=== PATIENT | female | born 2005 | race Caucasian/White ===

== ENCOUNTER 2025-08-16 15:46 | Emergency (ER) | payer OTHER ==
[2025-08-16 15:54] VITALS: BP 110/75; PULSE 92; RESP 18; TEMP 98.2; BMI 27.3
[2025-08-16 17:00] LABS: ABSOLUTE IMMATURE GRANULOCYTES 0.01 x10^3/uL (0.0-0.031); BASOPHILS # 0.01 x10^3/uL (0.01-0.08); EOSINOPHIL % 0.2 % (0.7-5.8); EOSINOPHILS # 0.01 x10^3/uL (0.04-0.36); MCHC 33.7 g/dl (32.2-35.5); MEAN CELL VOLUME 90.1 fl (79.4-94.8); MEAN PLT VOLUME 9.2 fl (9.4-12.3); MONOCYTE # 0.36 x10^3/uL (0.24-0.86); MONOCYTE % 5.4 % (4.7-12.5); RDW 13.2 % (12.1-16.5)
[2025-08-16 17:02] LABS: URINE APPEARANCE CLEAR; URINE BILIRUBIN NEGATIVE (NEGATIVE); URINE COLOR YELLOW; URINE GLUCOSE (UA) NEGATIVE (NEGATIVE); URINE KETONE 1+ (NEGATIVE); URINE LEUK ESTERASE NEGATIVE (NEGATIVE); URINE NITRITE NEGATIVE (NEGATIVE); URINE PROTEIN NEGATIVE (NEGATIVE); URINE UROBILINOGEN 0.2 mg/dL (0.2-1.0)
[2025-08-16 17:05] LABS: HCG,QUALITATIVE URINE Negative
[2025-08-16] MEDS: ACETAMINOPHEN 1000 MG/100 ML BAG IVPB ONE (17:05)
[2025-08-16] MEDS: FAMOTIDINE 20 MG/50 ML IVPB 20 MG/50 ML MG IVPB ONE (17:05)
[2025-08-16] MEDS: MAG HYDROX/AL HYDROX/SIMETH 30 ML UNIT-DOSE CUP PO ONE (17:05)
[2025-08-16] MEDS ORDERED: FAMOTIDINE 20 MG/50 ML IVPB 20 MG/50 ML MG IVPB ONE (17:11)
[2025-08-16] MEDS ORDERED: ACETAMINOPHEN INJECTION 100 ML ONE (17:11)
[2025-08-16] MEDS ORDERED: MAG HYDROX/AL HYDROX/SIMETH 30 ML UNIT-DOSE CUP ONE (17:11)
[2025-08-16 17:18] LABS: GLUCOSE,RANDOM 85.0 mg/dL (74-106)
[2025-08-16 17:19] LABS: TOT PROT 7.7 g/dl (6.4-8.2)
[2025-08-16 17:20] LABS: CO2 24.0 mmol/L (21-32)
[2025-08-16 17:21] LABS: ALK PHOS 74.0 U/L (40-150)
[2025-08-16 17:24] LABS: CREATININE 0.62 mg/dL (0.55-1.3); SGOT/AST 29.0 U/L (5-34); SGPT/ALT 24.0 U/L (0-55)
[2025-08-16 17:44] LABS: HCV DIAGNOSTIC IN-HOUSE W/RFLX NON-REACTIVE (NONREACTIVE)
[2025-08-16 17:45] LABS: HIV INTERPRETATION NEGATIVE (NEGATIVE)
== END 2025-08-16 18:05 | disposition home or self-care (01) ==
LOC: JER 15:46
PROC: 3E033GC Introduction of Other Therapeutic Substance into Peripheral Vein, Percutaneous Approach (ICD-10-PCS; principal; 2025-08-16)
PROC: 3E033NZ Introduction of Analgesics, Hypnotics, Sedatives into Peripheral Vein, Percutaneous Approach (ICD-10-PCS; 2025-08-16)
DX: R10.13 Epigastric pain (principal)
CPT/HCPCS: 36415; 80053; 81003; 83690; 84703; 85025; 86803; 87086; 87389; 99284-25